=== PATIENT | male | born 1980 | race Caucasian/White ===

== ENCOUNTER 2023-10-19 03:56 | Emergency (ER) | payer MEDICAID ==
[~2023-10-19] VITALS: Ht 175.3 cm; Wt 77.3 kg
[2023-10-19 04:05] VITALS: BP 180/114; PULSE 94; RESP 16; TEMP 98.1
[2023-10-19 04:17] LABS: COVID AG,FIA SOURCE NASAL SWAB
[2023-10-19 04:27] LABS: SARS-COV2 (COVID) ANTIGEN,FIA Negative (Negative)
[2023-10-19 04:28] LABS: INFLUENZA TYPE A NEGATIVE FOR TYPE A (NEGATIVE); INFLUENZA TYPE B NEGATIVE FOR TYPE B (NEGATIVE)
[2023-10-19] MEDS: CloNIDine HCL 0.1 MG TABLET PO ONE (04:44)
[2023-10-19] MEDS: IBUPROFEN 600 MG TABLET PO ONE (04:56)
== END 2023-10-19 04:58 | disposition home or self-care (01) ==
LOC: EMS 03:59
DX: J06.9 Acute upper respiratory infection, unspecified (principal); Z20.822 Contact with and (suspected) exposure to COVID-19
CPT/HCPCS: 87804; 99283

== ENCOUNTER 2024-06-05 23:07 | Emergency (ER) | payer MEDICAID ==
[~2024-06-05] VITALS: Ht 167.6 cm; Wt 77.3 kg
[2024-06-05 23:26] VITALS: TEMP 98.6
[2024-06-06] MEDS: LIDOCAINE 1% 10 ML VIAL SQ ONE (02:55)
[2024-06-06] MEDS: PERTUSS(ACELL),DIPH,TET/PF 0.5 ML SYRINGE [ADULT] IM. ONE (02:56)
[2024-06-06 03:17] VITALS: BP 124/76; PULSE 73; RESP 16; O2SAT 97
== END 2024-06-06 03:29 | disposition home or self-care (01) ==
LOC: EMS 23:07
DX: S61.215A Laceration without foreign body of left ring finger without damage to nail, initial encounter (principal); W26.8XXA Contact with other sharp object(s), not elsewhere classified, initial encounter; Y93.89 Activity, other specified; Y92.89 Other specified places as the place of occurrence of the external cause; Y99.8 Other external cause status
CPT/HCPCS: 99283; 12002; 90715; 90471; J3490